=== PATIENT | female | born 1980 | race Caucasian/White ===

== ENCOUNTER 2017-04-19 15:47 | Emergency (ER) | payer MEDICAID | END 2017-04-19 20:26 | disposition home or self-care (01) | LOC: FTE 15:47 | DX: F41.9 Anxiety disorder, unspecified (principal) | CPT/HCPCS: 93005; 99283-25 ==

== ENCOUNTER 2018-01-22 18:10 | Emergency (ER) | payer MEDICAID ==
[2018-01-22] MEDS: IBUPROFEN 600 MG TAB PO (19:20)
== END 2018-01-22 20:38 | disposition home or self-care (01) ==
LOC: FTE 18:10
DX: M79.642 Pain in left hand (principal)
CPT/HCPCS: 73080; 73080-LT; 73130-LT; 99283-25

== ENCOUNTER 2018-11-03 15:39 | Emergency (ER) | payer MEDICAID ==
[2018-11-03] MEDS: ONDANSETRON 4 MG INJ IV (16:53)
[2018-11-03] MEDS: SOD CHLORIDE 0.9% 1,000 ML IV (16:53)
[2018-11-03] MEDS: KETOROLAC 30 MG INJ IV (16:54)
[2018-11-03] MEDS: DIPHENHYDRAMINE 50 MG INJ IV (19:17)
[2018-11-03] MEDS: METOCLOPRAMIDE 10 MG INJ IV (19:17)
[2018-11-03] MEDS: morphine 2 MG INJ IV ×2 (19:17→20:22)
== END 2018-11-03 20:54 | disposition home or self-care (01) ==
LOC: FTE 15:39
DX: R51 Headache (principal); I10 Essential (primary) hypertension
CPT/HCPCS: 81025; 96374; 96375; 99284-25

== ENCOUNTER 2018-11-28 19:53 | Emergency (ER) | payer MEDICAID ==
[2018-11-28] MEDS: LORAZEPAM 2 MG INJ IV (20:16)
[2018-11-28] MEDS: SOD CHLORIDE 0.9% 1,000 ML IV (20:16)
[2018-11-28 20:18] LABS: ADD MAN DIFF? NO
[2018-11-28 20:20] LABS: WHITE BLOOD COUNT 8.8 10^3/ul (4.8-10.8)
[2018-11-28 20:20] LABS: BASOPHILS % 0.3 % (0.0-2.0); EOSINOPHILS # 0.1 10^3/ul (0.0-0.5); HEMATOCRIT 40.6 % (37.0-47.0); HEMOGLOBIN 13.4 g/dl (12.0-16.0); LYMPHOCYTES # 3.5 10^3/ul (0.8-2.9); LYMPHOCYTES % 40.1 % (15.0-51.0); MEAN CORPUSCULAR HEMOGLOBIN 27.3 pg (29.0-33.0); MEAN CORPUSCULAR VOLUME 82.9 fl (82.0-101.0); MEAN PLATELET VOLUME 10.3 fl (7.4-10.4); MONOCYTE # 0.4 10^3/ul (0.3-0.9); MONOCYTES % 4.6 % (0.0-11.0); NEUTROPHIL # 4.7 10^3/ul (1.6-7.5); NEUTROPHILS % 53.7 % (39.0-77.0); PLATELET COUNT 346 10^3/UL (140-415); RED CELL DISTRIBUTION WIDTH 12.8 % (11.5-14.5)
[2018-11-28 20:39] LABS: ALANINE AMINOTRANSFERASE 22 IU/L (13-69); ALBUMIN 4.5 g/dl (3.3-4.9); ALBUMIN/GLOBULIN RATIO 1.07; ALKALINE PHOSPHATASE 99 IU/L (42-121); ANION GAP 10 (5-13); ASPARTATE AMINO TRANSFERASE 22 IU/L (15-46); BILIRUBIN,INDIRECT 0.4 mg/dl (0-1.1); BILIRUBIN,TOTAL 0.4 mg/dl (0.2-1.3); BLOOD UREA NITROGEN 12 mg/dl (7-20); CALCIUM 10.1 mg/dl (8.4-10.2); CARBON DIOXIDE 24 mmol/L (21-31); CHLORIDE 106 mmol/L (97-110); CREATINE KINASE 88 IU/L (23-200); CREATININE 0.64 mg/dl (0.44-1.00); Estimated GFR > 60 mL/min (>60); GLUCOSE 129 mg/dl (70-220); INR 0.99; POTASSIUM 3.3 mmol/L (3.5-5.1); PROTIME 13.2 Sec (11.9-14.9); SODIUM 140 mmol/L (135-144); TOTAL PROTEIN 8.7 g/dl (6.1-8.1)
[2018-11-28 20:40] LABS: PARTIAL THROMBOPLASTIN TIME 32.8 Sec (23.0-35.0)
[2018-11-28 20:51] LABS: B-TYPE NATRIURETIC PEPTIDE 78 PG/ML (0-125); CK INDEX 0.5; CK-MB 0.42 ng/ml (0.0-2.4); TROPONIN-I < 0.012 ng/ml (0.000-0.120)
== END 2018-11-28 22:02 | disposition home or self-care (01) ==
LOC: E/R 19:53
DX: F43.20 Adjustment disorder, unspecified (principal); I10 Essential (primary) hypertension
CPT/HCPCS: 80053; 82550; 82553; 83880; 84484; 85025; 85610; 85730; 93005; 96374; 99284-25